=== PATIENT | female | born 1935 | race Hispanic/Latino ===

== ENCOUNTER 2021-06-11 05:40 | Inpatient (IN) | payer MEDICARE ==
[2021-06-09 13:28] LABS: BASOPHILS % 0.5 % (0.0-1.0); EOSINOPHILS # (AUTO) 0.1 (0.0-0.4); EOSINOPHILS % 1.3 % (0.0-6.0); HEMATOCRIT 40.6 % (34.2-44.1); HEMOGLOBIN 12.8 g/dL (12.0-16.0); LYMPHOCYTES # (AUTO) 1.7 (1.0-3.2); LYMPHOCYTES % 28.3 % (18.0-39.1); MEAN CORPUSCULAR HEMOGLOBIN 30.8 pg (28-32); MEAN CORPUSCULAR HGB CONC 31.5 g/dL (31-35); MEAN CORPUSCULAR VOLUME 97.6 fL (81-99); MONOCYTES # (AUTO) 0.6 (0.2-0.8); NEUTROPHILS # (AUTO) 3.6 (2.1-6.9); NEUTROPHILS % 59.6 % (38.7-80.0); PLATELET COUNT 193 x10e3/uL (140-360); RED BLOOD COUNT 4.16 x10e6/uL (3.6-5.1); RED CELL DISTRIBUTION WIDTH 12.1 % (11.7-14.4)
[2021-06-09 13:48] LABS: ALBUMIN 4.1 g/dL (3.5-5.0); ALBUMIN/GLOBULIN RATIO 1.1 (0.8-2.0); ANION GAP 12.6 mmol/L (8-16); CALCIUM 8.9 mg/dL (8.4-10.2); CREATININE, SERUM 1.12 mg/dL (0.57-1.11); POTASSIUM 4.6 mmol/L (3.5-5.1)
[~2021-06-11] VITALS: Ht 154.9 cm; Wt 53.5 kg
[~2021-06-11 05:40] MED LIST: BIOTIN10 MG PO; CIPRO250 MG PO; LEVOFLOXACIN250 MG PO; LEVOTHYROXINE88 MCG PO; LISINOPRIL10 MG PO; PROMETHAZINE HC25 M1 PO
[2021-06-11] MEDS ORDERED: CLINDAMYCIN PHOS 900 MG/50 ML IV ONE (06:37)
[2021-06-11] MEDS ORDERED: SODIUM CHLORIDE 0.9% 50ML 50 ML ONE ×2 (06:37→06:44)
[2021-06-11] MEDS ORDERED: PIPERACILLIN/TAZOBACTAM 3.375 GM VIAL ONE (06:44)
[2021-06-11] MEDS ORDERED: IOPAMIDOL 300MG/ML 50ML INFUS..BTL IV ONE (07:46)
[2021-06-11] MEDS ORDERED: BUPIVACAINE HCL 0.5% INJ 30 ML VIAL INJ ONE (07:46)
[2021-06-11] MEDS ORDERED: ONDANSETRON HCL INJ 2MG/ML 2ML 2 MG/ML VIAL IV PRN (11:15)
[2021-06-11] MEDS ORDERED: NALOXONE HCL INJ 0.4 MG/ML AMP IV PRN (11:15)
[2021-06-11] MEDS ORDERED: PHENAZOPYRIDINE HCL 100 MG TAB PO PRN (11:15)
[2021-06-11] MEDS ORDERED: DIPHENHYDRAMINE HCL INJ 50 MG/ML VIAL IM PRN (11:15)
[2021-06-11] MEDS: MORPHINE SULFATE 1 MG/ML 30ML PCA IV PRN (11:25)
[2021-06-11 11:41] LABS: BASOPHILS % 0.3 % (0.0-1.0); EOSINOPHILS % 0.2 % (0.0-6.0); HEMATOCRIT 36.3 % (34.2-44.1); HEMOGLOBIN 11.3 g/dL (12.0-16.0); LYMPHOCYTES # (AUTO) 2.1 (1.0-3.2); LYMPHOCYTES % 18.6 % (18.0-39.1); MEAN CORPUSCULAR HEMOGLOBIN 30.8 pg (28-32); MEAN CORPUSCULAR HGB CONC 31.1 g/dL (31-35); MEAN CORPUSCULAR VOLUME 98.9 fL (81-99); MONOCYTES # (AUTO) 0.5 (0.2-0.8); MONOCYTES % 4.8 % (4.4-11.3); NEUTROPHILS # (AUTO) 8.5 (2.1-6.9); NEUTROPHILS % 75.7 % (38.7-80.0); PLATELET COUNT 173 x10e3/uL (140-360); RED BLOOD COUNT 3.67 x10e6/uL (3.6-5.1); RED CELL DISTRIBUTION WIDTH 12.1 % (11.7-14.4)
[2021-06-11] MEDS ORDERED: FENTANYL CITRATE/PF 100MCG/2 ML INJ ONE (11:53)
[2021-06-11 11:58] LABS: ANION GAP 14.4 mmol/L (8-16); CALCIUM 7.6 mg/dL (8.4-10.2); CREATININE, SERUM 1.24 mg/dL (0.57-1.11); POTASSIUM 4.4 mmol/L (3.5-5.1)
[2021-06-11] MEDS: D5.45%NS/KCL 20MEQ 1,000 ML IV SCH ×2 (13:00→21:31)
[2021-06-11] MEDS: PIPERACILLIN/TAZOBACTAM 2.25 GM in SODIUM CHLORIDE 0.9% 50ML 50 ML IV SCH ×2 (14:58→22:32)
[2021-06-11] MEDS ORDERED: ACETAMINOPHEN 1000 MG/100 ML IV PRN (15:00)
[2021-06-11 15:12] VITALS: BP 139/67
[2021-06-11 15:37] VITALS: BP 145/75
[2021-06-11] MEDS: CLINDAMYCIN 300MG 50 ML IV SCH (15:55)
[2021-06-11] MEDS ORDERED: DOCUSATE SODIUM 100 MG CAP PO SCH (17:00)
[2021-06-11] MEDS ORDERED: SEVOFLURANE INHAL SOLN 250 ML PEN BTL ONE (17:50)
[2021-06-11] MEDS ORDERED: POVIDONE IODINE 0.05% 0.05 % ML PO ONE (17:50)
[2021-06-11] MEDS ORDERED: DEXAMETHASONE SOD PHOS INJ 4 MG/ML SDV ONE (17:50)
[2021-06-11] MEDS ORDERED: EPHEDRINE SULFATE INJ 50 MG/ML VIAL ONE (17:50)
[2021-06-11] MEDS ORDERED: ONDANSETRON HCL INJ 2MG/ML 2ML 2 MG/ML VIAL ONE (17:50)
[2021-06-11] MEDS ORDERED: ROCURONIUM BROMIDE 10 MG/ML 5ML VIAL IV ONE (17:50)
[2021-06-11] MEDS ORDERED: PROPOFOL IV EMULSION 10 MG/ML 20 ML VIAL ONE (17:50)
[2021-06-11] MEDS ORDERED: LIDOCAINE HCL 2% LOCAL INJ 5 ML SDV VIAL INJ ONE (17:50)
[2021-06-11 20:00] VITALS: BP 169/117
[2021-06-11] MEDS: DOCUSATE SODIUM 100 MG CAP PO SCH (21:00)
[2021-06-12] VITALS: BP 124/47
[2021-06-12] MEDS: CLINDAMYCIN 300MG 50 ML IV SCH (00:14)
[2021-06-12] MEDS: MORPHINE SULFATE 1 MG/ML 30ML PCA IV PRN (01:15)
[2021-06-12] MEDS: D5.45%NS/KCL 20MEQ 1,000 ML IV SCH (03:15)
[2021-06-12 04:00] VITALS: BP 96/57
[2021-06-12 05:56] LABS: BASOPHILS % 0.2 % (0.0-1.0); HEMATOCRIT 31.1 % (34.2-44.1); HEMOGLOBIN 9.5 g/dL (12.0-16.0); LYMPHOCYTES # (AUTO) 1.2 (1.0-3.2); LYMPHOCYTES % 9.9 % (18.0-39.1); MEAN CORPUSCULAR HEMOGLOBIN 30.7 pg (28-32); MEAN CORPUSCULAR HGB CONC 30.5 g/dL (31-35); MEAN CORPUSCULAR VOLUME 100.6 fL (81-99); MONOCYTES # (AUTO) 1.1 (0.2-0.8); MONOCYTES % 8.9 % (4.4-11.3); NEUTROPHILS # (AUTO) 9.5 (2.1-6.9); NEUTROPHILS % 80.6 % (38.7-80.0); PLATELET COUNT 183 x10e3/uL (140-360); RED BLOOD COUNT 3.09 x10e6/uL (3.6-5.1); RED CELL DISTRIBUTION WIDTH 12.4 % (11.7-14.4)
[2021-06-12] MEDS: PIPERACILLIN/TAZOBACTAM 2.25 GM in SODIUM CHLORIDE 0.9% 50ML 50 ML IV SCH ×2 (05:56→14:00)
[2021-06-12 06:31] LABS: ANION GAP 12.9 mmol/L (8-16); CALCIUM 7.1 mg/dL (8.4-10.2); CREATININE, SERUM 1.87 mg/dL (0.57-1.11)
[2021-06-12 06:57] LABS: POTASSIUM 5.9 mmol/L (3.5-5.1)
[2021-06-12 07:29] VITALS: BP 99/46
[2021-06-12] MEDS ORDERED: DEXTROSE 50% SYRINGE 50 ML IV ONE (08:30)
[2021-06-12] MEDS ORDERED: SODIUM CHLORIDE 0.45% 1,000 ML IV SCH (08:30)
[2021-06-12] MEDS ORDERED: INSULIN REGULAR, HUMAN 100 UNIT/1 ML IV ONE (08:30)
[2021-06-12] MEDS ORDERED: ONDANSETRON HCL INJ 2MG/ML 2ML 2 MG/ML VIAL IV PRN (08:45)
[2021-06-12] MEDS ORDERED: SODIUM CHLORIDE 0.45% 1,000 ML ONE ×2 (08:49→08:50)
[2021-06-12] MEDS: LEVOTHYROXINE SODIUM 88 MCG TAB PO SCH (09:00)
[2021-06-12] MEDS: DOCUSATE SODIUM 100 MG CAP PO SCH ×2 (09:00→21:00)
[2021-06-12] MEDS ORDERED: SOD POLYSTYRENE SULFONATE SUSP 15 GM/60 ML BTL PO ONE (09:30)
[2021-06-12] MEDS: LORATADINE 10 MG TAB PO SCH (09:30)
[2021-06-12 11:29] VITALS: BP 85/46
[2021-06-12] MEDS: SODIUM BICARBONATE 8.4% 50 ML in SODIUM CHLORIDE 0.45% 1,000 ML IV SCH ×2 (11:30→20:00)
[2021-06-12] MEDS: FAMOTIDINE 20 MG/2 ML VIAL IV SCH (11:41)
[2021-06-12] MEDS: ACETAMINOPHEN 1000 MG/100 ML IV SCH ×2 (12:00→18:00)
[2021-06-12 13:39] LABS: ANION GAP 14.3 mmol/L (8-16); CREATININE, SERUM 2.39 mg/dL (0.57-1.11); POTASSIUM 5.3 mmol/L (3.5-5.1)
[2021-06-12 14:19] LABS: CALCIUM 6.9 mg/dL (8.4-10.2)
[2021-06-12] MEDS ORDERED: SODIUM CHLORIDE 0.9% 250ML 250 ML ONE ×2 (14:27→22:57)
[2021-06-12] MEDS ORDERED: SODIUM CHLORIDE 0.9% 500ML 500 ML IV ONE (15:15)
[2021-06-12 15:21] VITALS: BP 127/53
[2021-06-12] MEDS ORDERED: CALCIUM CHLORIDE 13.6 MEQ in SODIUM CHLORIDE 0.9% 100 ML 100 ML IV ONE ×2 (17:00→20:00)
[2021-06-12 20:00] VITALS: BP 98/49
[2021-06-12] MEDS: CALCIUM CARBONATE 500 MG CHEWABLE TABS PO SCH (21:00)
[2021-06-13] VITALS (8 sets, daily range): BP systolic 103–137; BP diastolic 46–62
[2021-06-13] MEDS: PIPERACILLIN/TAZOBACTAM 2.25 GM in SODIUM CHLORIDE 0.9% 50ML 50 ML IV SCH ×4 (00:26→21:56)
[2021-06-13] MEDS: LEVOTHYROXINE SODIUM 88 MCG TAB PO SCH (06:12)
[2021-06-13 06:22] LABS: BASOPHILS % 0.4 % (0.0-1.0); EOSINOPHILS # (AUTO) 0.1 (0.0-0.4); EOSINOPHILS % 0.5 % (0.0-6.0); HEMATOCRIT 31.6 % (34.2-44.1); HEMOGLOBIN 9.2 g/dL (12.0-16.0); LYMPHOCYTES # (AUTO) 1.1 (1.0-3.2); LYMPHOCYTES % 10.6 % (18.0-39.1); MEAN CORPUSCULAR HGB CONC 29.1 g/dL (31-35); MEAN CORPUSCULAR VOLUME 106.4 fL (81-99); MONOCYTES # (AUTO) 1.1 (0.2-0.8); MONOCYTES % 10.6 % (4.4-11.3); NEUTROPHILS # (AUTO) 7.9 (2.1-6.9); NEUTROPHILS % 77.3 % (38.7-80.0); PLATELET COUNT 148 x10e3/uL (140-360); RED BLOOD COUNT 2.97 x10e6/uL (3.6-5.1); RED CELL DISTRIBUTION WIDTH 12.7 % (11.7-14.4)
[2021-06-13] MEDS: SODIUM BICARBONATE 8.4% 50 ML in SODIUM CHLORIDE 0.45% 1,000 ML IV SCH ×2 (06:30→17:51)
[2021-06-13] MEDS: ACETAMINOPHEN 1000 MG/100 ML IV SCH ×2 (06:33)
[2021-06-13 07:03] LABS: ALBUMIN 2.6 g/dL (3.5-5.0); ALBUMIN/GLOBULIN RATIO 0.9 (0.8-2.0); ANION GAP 13.1 mmol/L (8-16); CALCIUM 7.2 mg/dL (8.4-10.2); CREATININE, SERUM 2.34 mg/dL (0.57-1.11); MAGNESIUM 1.8 MG/DL (1.3-2.1); POTASSIUM 5.1 mmol/L (3.5-5.1)
[2021-06-13] MEDS ORDERED: ACETAMINOPHEN 1000 MG/100 ML IV PRN (08:15)
[2021-06-13] MEDS: FAMOTIDINE 20 MG/2 ML VIAL IV SCH (09:55)
[2021-06-13] MEDS: DOCUSATE SODIUM 100 MG CAP PO SCH ×2 (09:55→21:56)
[2021-06-13] MEDS: LORATADINE 10 MG TAB PO SCH (09:55)
[2021-06-13] MEDS: CALCIUM CARBONATE 500 MG CHEWABLE TABS PO SCH ×3 (09:55→21:56)
[2021-06-13] MEDS ORDERED: SODIUM CHLORIDE 0.9% 500ML 500 ML ONE (12:57)
[2021-06-13] MEDS ORDERED: SODIUM CHLORIDE 0.9% 500ML 500 ML IV ONE (14:00)
[2021-06-14] VITALS (8 sets, daily range): BP systolic 122–144; BP diastolic 53–68
[2021-06-14 01:18] LABS: CLARITY,URINE CLEAR (CLEAR); COLOR,URINE YELLOW (YELLOW); EOSINOPHIL SMEAR,URINE NONE SEEN (NONE SEEN); KETONES,URINE NEGATIVE (NEGATIVE); LEUKOCYTE ESTERASE ,URINE NEGATIVE (NEGATIVE); NITRITE,URINE NEGATIVE (NEGATIVE); PROTEIN,URINE DIPSTICK NEGATIVE (NEGATIVE); URINE UROBILINOGEN 0.2 mg/dL (0.2 - 1)
[2021-06-14 01:25] LABS: BACTERIA,URINE RARE /HPF; EPITHELIAL CELLS,URINE RARE /LPF; RBC,URINE 21-50 /HPF (0-5)
[2021-06-14] MEDS: PIPERACILLIN/TAZOBACTAM 2.25 GM in SODIUM CHLORIDE 0.9% 50ML 50 ML IV SCH ×3 (05:28→21:43)
[2021-06-14] MEDS: LEVOTHYROXINE SODIUM 88 MCG TAB PO SCH (05:28)
[2021-06-14] MEDS: SODIUM BICARBONATE 8.4% 50 ML in SODIUM CHLORIDE 0.45% 1,000 ML IV SCH (06:02)
[2021-06-14 06:45] LABS: BASOPHILS % 0.5 % (0.0-1.0); EOSINOPHILS # (AUTO) 0.1 (0.0-0.4); EOSINOPHILS % 1.6 % (0.0-6.0); HEMATOCRIT 27.9 % (34.2-44.1); HEMOGLOBIN 8.6 g/dL (12.0-16.0); LYMPHOCYTES # (AUTO) 1.1 (1.0-3.2); LYMPHOCYTES % 12.8 % (18.0-39.1); MEAN CORPUSCULAR HGB CONC 30.8 g/dL (31-35); MEAN CORPUSCULAR VOLUME 100.7 fL (81-99); MONOCYTES # (AUTO) 0.7 (0.2-0.8); MONOCYTES % 7.9 % (4.4-11.3); NEUTROPHILS # (AUTO) 6.5 (2.1-6.9); NEUTROPHILS % 76.5 % (38.7-80.0); PLATELET COUNT 150 x10e3/uL (140-360); RED BLOOD COUNT 2.77 x10e6/uL (3.6-5.1); RED CELL DISTRIBUTION WIDTH 12.7 % (11.7-14.4)
[2021-06-14 07:03] LABS: ANION GAP 14.4 mmol/L (8-16); CALCIUM 7.5 mg/dL (8.4-10.2); CREATININE, SERUM 1.67 mg/dL (0.57-1.11); POTASSIUM 4.4 mmol/L (3.5-5.1)
[2021-06-14] MEDS: FAMOTIDINE 20 MG/2 ML VIAL IV SCH (09:34)
[2021-06-14] MEDS: LORATADINE 10 MG TAB PO SCH (09:34)
[2021-06-14] MEDS: CALCIUM CARBONATE 500 MG CHEWABLE TABS PO SCH ×3 (09:34→21:43)
[2021-06-14] MEDS: DOCUSATE SODIUM 100 MG CAP PO SCH ×2 (09:34→14:43)
[2021-06-15] VITALS (9 sets, daily range): BP systolic 134–182; BP diastolic 58–81
[2021-06-15] MEDS: LEVOTHYROXINE SODIUM 88 MCG TAB PO SCH (05:54)
[2021-06-15] MEDS: PIPERACILLIN/TAZOBACTAM 2.25 GM in SODIUM CHLORIDE 0.9% 50ML 50 ML IV SCH ×3 (05:54→21:29)
[2021-06-15 07:43] LABS: CALCIUM 8.1 mg/dL (8.4-10.2); CREATININE, SERUM 1.11 mg/dL (0.57-1.11)
[2021-06-15] MEDS: DOCUSATE SODIUM 100 MG CAP PO SCH ×2 (09:00→20:32)
[2021-06-15] MEDS: FAMOTIDINE 20 MG/2 ML VIAL IV SCH (09:35)
[2021-06-15] MEDS: CALCIUM CARBONATE 500 MG CHEWABLE TABS PO SCH ×3 (09:36→21:14)
[2021-06-15] MEDS: LORATADINE 10 MG TAB PO SCH (09:36)
[2021-06-15] MEDS ORDERED: METOPROLOL TARTRATE 25 MG TAB PO NR (10:00)
[2021-06-15] MEDS ORDERED: MAALOX/LIDOCAINE/BENADRYL/NYST 30 ML BTL PO PRN (10:00)
[2021-06-15] MEDS: AMLODIPINE BESYLATE 5 MG TAB PO SCH (10:33)
[2021-06-15] MEDS ORDERED: MAGNESIUM/ALUMINUM/SIMETHICONE 30 ML UDC PO PRN (11:00)
[2021-06-15] MEDS: METOPROLOL TARTRATE 25 MG TAB PO SCH (17:08)
[2021-06-15] MEDS: FAMOTIDINE 20 MG TAB PO SCH (17:08)
[2021-06-16] VITALS: BP 142/64
[2021-06-16 04:00] VITALS: BP 135/69
[2021-06-16] MEDS: LEVOTHYROXINE SODIUM 88 MCG TAB PO SCH (05:12)
[2021-06-16] MEDS: PIPERACILLIN/TAZOBACTAM 2.25 GM in SODIUM CHLORIDE 0.9% 50ML 50 ML IV SCH (05:12)
[2021-06-16 06:10] LABS: BASOPHILS % 0.3 % (0.0-1.0); EOSINOPHILS # (AUTO) 0.1 (0.0-0.4); EOSINOPHILS % 0.9 % (0.0-6.0); HEMATOCRIT 27.9 % (34.2-44.1); HEMOGLOBIN 9.5 g/dL (12.0-16.0); LYMPHOCYTES # (AUTO) 1.3 (1.0-3.2); LYMPHOCYTES % 15.6 % (18.0-39.1); MEAN CORPUSCULAR HGB CONC 34.1 g/dL (31-35); MEAN CORPUSCULAR VOLUME 96.9 fL (81-99); MONOCYTES # (AUTO) 0.8 (0.2-0.8); MONOCYTES % 9.4 % (4.4-11.3); NEUTROPHILS # (AUTO) 6.3 (2.1-6.9); NEUTROPHILS % 72.9 % (38.7-80.0); PLATELET COUNT 200 x10e3/uL (140-360); RED BLOOD COUNT 2.88 x10e6/uL (3.6-5.1)
[2021-06-16 06:58] LABS: ANION GAP 14.5 mmol/L (8-16); CALCIUM 8.9 mg/dL (8.4-10.2); CREATININE, SERUM 1.2 mg/dL (0.57-1.11); POTASSIUM 3.5 mmol/L (3.5-5.1)
[2021-06-16 07:46] VITALS: BP 150/76
[2021-06-16 09:00] VITALS: BP 150/76
[2021-06-16] MEDS: LORATADINE 10 MG TAB PO SCH (09:01)
[2021-06-16] MEDS: FAMOTIDINE 20 MG TAB PO SCH ×2 (09:01→16:50)
[2021-06-16] MEDS: METOPROLOL TARTRATE 25 MG TAB PO SCH ×2 (09:02→16:51)
[2021-06-16] MEDS: CALCIUM CARBONATE 500 MG CHEWABLE TABS PO SCH ×2 (09:02→16:50)
[2021-06-16] MEDS: AMLODIPINE BESYLATE 5 MG TAB PO SCH (09:02)
[2021-06-16] MEDS ORDERED: POTASSIUM CHLORIDE 10MEQ EA PO ONE (10:00)
[2021-06-16] MEDS: VANCOMYCIN HCL 125 MG CAPSULE PO SCH ×2 (11:01→14:00)
[2021-06-16] MEDS: CHOLESTYRAMINE 4 GM PACKET PO SCH ×2 (11:01→16:51)
[2021-06-16 11:37] VITALS: BP 167/73
[2021-06-16] MEDS ORDERED: ONDANSETRON HCL 4 MG ORAL DISINTEGRATING TAB PO PRN (13:45)
[2021-06-16 15:43] VITALS: BP 153/67
== END 2021-06-16 18:55 | disposition home or self-care (01) | DRG 742 ==
LOC: OR 05:40 → PACU V 11:07 → MED/SURG 13:02 → UNDODISIN 06-12 16:40
PROVIDERS: ADMIT Obstetrics & Gynecology; ATTEND Obstetrics & Gynecology
PROC: 0TSD4ZZ Reposition Urethra, Percutaneous Endoscopic Approach (ICD-10-PCS; 2021-06-11)
PROC: 0T788ZZ Dilation of Bilateral Ureters, Via Natural or Artificial Opening Endoscopic (ICD-10-PCS; 2021-06-11)
PROC: 0UT20ZZ Resection of Bilateral Ovaries, Open Approach (ICD-10-PCS; principal; 2021-06-11 07:41)
PROC: 0USG4ZZ Reposition Vagina, Percutaneous Endoscopic Approach (ICD-10-PCS; 2021-06-11 07:41)
PROC: 0UT90ZZ Resection of Uterus, Open Approach (ICD-10-PCS; 2021-06-11 07:41)
DX: N81.4 Uterovaginal prolapse, unspecified (principal); N17.0 Acute kidney failure with tubular necrosis; E87.2 Acidosis; E78.5 Hyperlipidemia, unspecified; E87.8 Other disorders of electrolyte and fluid balance, not elsewhere classified; E83.51 Hypocalcemia; N32.89 Other specified disorders of bladder; I12.9 Hypertensive chronic kidney disease with stage 1 through stage 4 chronic kidney disease, or unspecified chronic kidney disease; N18.9 Chronic kidney disease, unspecified; Z20.822 Contact with and (suspected) exposure to COVID-19
CPT/HCPCS: 36415; 71046; 74420; 76770; 80048; 80053; 81001; 81015; 83735; 84100; 85025; 86850; 86900; 88307; 93005; 97139; C1758; C1769; C1781; J0690; J1100; J1817; J2001; J2270; J2405; J2543; J3010; J7040; J7050; J7799; U0002